=== PATIENT | female | born 1975 | race Caucasian/White ===

== ENCOUNTER 2017-03-29 10:36 | Emergency (ER) | payer SELFPAY ==
[2017-03-29 10:45] VITALS: BP 119/95; PULSE 98; RESP 18; TEMP 98.1; O2SAT 94
== END 2017-03-29 11:42 | disposition left against medical advice (07) ==
DX: Z53.21 Procedure and treatment not carried out due to patient leaving prior to being seen by health care provider (principal)

== ENCOUNTER 2017-04-02 23:42 | Emergency (ER) | payer OTHER ==
[2017-04-02 23:57] VITALS: O2SAT 96
--- NOTE | 2017-04-03 00:24 | CPEKG ---
Heart Rate: 76 RR Interval: 789 P-R Interval: 216 QRSD Interval: 84 QT Interval: 372 QTC Interval: 419 P [place]: 65 QRS [place]: -10 T Wave [place]: 15 EKG Severity - ABNORMAL ECG - EKG Impression: SINUS RHYTHM EKG Impression: FIRST DEGREE AV BLOCK Electronically Signed By: Lorrie Yañez 03-Apr-2017 07:39:36
--- NOTE | 2017-04-03 01:13 | EDPHY ---
H & P Stated Complaint: [facility] Time Seen by Provider: 04/02/17 23:54 HPI/ROS: HPI The patient presents with shortness of breath which has been present for the last 1 month since she has been living in [place]. It is intermittent, mild in nature and not associated with any chest pain. She does have a history of 1 pack per day smoking and wonders if this is contributing. She does not have any coughing. She recently relocated here from [place]. She said she was seen at [facility] shortly after arriving but she denies any suicidal or homicidal ideations current [place]. She denies hearing any voices.. She is not on any psychiatric medication. REVIEW OF SYSTEMS Constitutional: No fever, no chills. Eyes: No discharge. ENT: No sore throat. Cardiovascular: No chest pain, no palpitations. Respiratory: No cough, positive for shortness of breath. Gastrointestinal: No abdominal pain, no vomiting. Genitourinary: No hematuria. Musculoskeletal: No back pain. Skin: No rashes. Neurological: No headache. PMHx: Psychiatric disease Soc Hx: 1 pack per day smoker, homeless PHYSICAL General Appearance: Alert, no distress Eyes: Pupils equal and round no pallor or injection ENT, Mouth: Mucous membranes moist Respiratory: There are no retractions, lungs are clear to auscultation Cardiovascular: Regular rate and rhythm Gastrointestinal: Abdomen is soft and non-tender, no masses, bowel sounds normal Neurological: A&O, moves all extremities Skin: Warm and dry, no rashes Musculoskeletal: Neck is supple non tender Extremities: symmetrical, full range of motion Psychiatric: Patient is oriented X 3, there is no agitation Source: Patient, EMS Exam Limitations: No limitations - Personal History Current Tetanus/Diphtheria Vaccine: Unsure Current Tetanus Diphtheria and Acellular Pertussis (TDAP): Unsure - Medical/Surgical History Hx Asthma: No Hx Chronic Respiratory Disease: No Hx Diabetes: No Hx Cardiac Disease: No Hx Renal Disease: No Hx Cirrhosis: No Hx Alcoholism: No Hx HIV/AIDS: No Hx Splenectomy or Spleen Trauma: No Other PMH: Depression. - Social History Smoking Status: Heavy smoker Constitutional: Initial Vital Signs Temperature (C) 36.3 C 04/02/17 23:40 Heart Rate 81 04/02/17 23:40 Respiratory Rate 18 04/02/17 23:40 Blood Pressure 122/88 H 04/02/17 23:40 O2 Sat (%) 96 04/02/17 23:40 O2 Delivery Mode Room Air Allergies/Adverse Reactions: No Known Allergies Allergy (Unverified 03/29/17 10:45) Home Medications: Medication Instructions Recorded NK [No Known Home Meds] 04/02/17 Medical Decision Making - Diagnostics EKG Interpretation: EKG: Complete interpretation has been separately recorded in the [facility] archive. Summary impression: Sinus rhythm Imaging Results: Chest x-ray two view shows no infiltrate, cardiomegaly, no effusion, interpreted by me, radiology interpretation is pending. Imaging: I viewed and interpreted images myself Differential Diagnosis: 41-year-old female, homeless, recently relocated here, heavy smoker, history of psychiatric disease, presents with shortness of breath intermittent for the last 1 month. There are no associated symptoms. On exam, she is very well- appearing, breathing comfortably, in no respiratory distress with clear lung sounds. Differential diagnosis includes COPD with exacerbation, bronchitis, pneumonia, less likely PE given no tachycardia or hypoxia. Less likely CHF been no associated symptoms. In the emergency department, EKG and chest x-ray were obtained and were unremarkable. The patient will be discharged home and is in agreement with this plan. I will give her an albuterol inhaler to go home with. - Data Points Medications Given: Discontinued Medications Albuterol Sulfate (Proventil Inh Prepack) 1 mdi TAKEHOME EDNOW ONE Stop: 04/03/17 01:19 Last Admin: 04/03/17 01:23 Dose: 1 mdi Diphenhydramine HCl (Benadryl) 50 mg PO EDNOW ONE Stop: 04/03/17 01:27 Last Admin: 04/03/17 01:28 Dose: 50 mg Departure - Departure Disposition: Home, Routine, Self-Care Clinical Impression: Shortness of breath Condition: Good Instructions: Albuterol (By breathing), Dyspnea (ED) Additional Instructions: Try the albuterol inhaler to see if this helps her symptoms. You should return to the emergency department if your worse in any way. Otherwise, [facility] Referrals: [facility],. [Clinic] - As per Instructions Stand Alone Forms: Work Excuse
[2017-04-03] MEDS ORDERED: ALBUTEROL INH PREPACK MDI TAKEHOME ONE ×2 (01:18)
[2017-04-03] MEDS ORDERED: diphenhydrAMINE 25 MG CAP PO ONE (01:26)
[2017-04-03 01:39] VITALS: BP 123/78; PULSE 80; RESP 16; TEMP 97.5
== END 2017-04-03 01:50 | disposition home or self-care (01) ==
LOC: EDUNIT#
DX: R06.02 Shortness of breath (principal); F17.200 Nicotine dependence, unspecified, uncomplicated

== ENCOUNTER 2017-04-24 01:17 | Emergency (ER) | payer OTHER ==
--- NOTE | 2017-04-24 01:24 | EDPHY ---
H & P Source: Patient, EMS - Medical/Surgical History Hx Asthma: No Hx Chronic Respiratory Disease: No Hx Diabetes: No Hx Cardiac Disease: No Hx Renal Disease: No Hx Cirrhosis: No Hx Alcoholism: No Hx HIV/AIDS: No Hx Splenectomy or Spleen Trauma: No Other PMH: Depression. - Social History Smoking Status: Heavy smoker HPI/ROS: HPI CHIEF COMPLAINT: Anxiety, depression, on M1 hold, paranoid HISTORY OF PRESENT ILLNESS: This patient is a 42-year-old female, she presents emergency room by EMS after police were called to a local [employer] shop as she was seated there talking to herself. Unclear who called 911 however she was brought to [facility] and had evaluation was then subsequently sent to the emergency room for medical clearance. They did place her on M1 hold. Patient denies wanting to hurt herself or anybody else. Denies being suicidal. She does state that people are following her and she is paranoid. Past Medical History: Anxiety, depression Past Surgical History: No recent surgery Social History: Homeless, denies drugs alcohol tobacco. Family History: Noncontributory ROS REVIEW OF SYSTEMS: A comprehensive 10 point review of systems is otherwise negative aside from elements mentioned in the history of present illness. Exam Constitutional appears well nontoxic, triage nursing summary reviewed, vital signs reviewed, awake/alert. Eyes normal conjunctivae and sclera, EOMI, PERRLA. HENT normal inspection, atraumatic, moist mucus membranes, no epistaxis, neck supple/ no meningismus, no raccoon eyes. Respiratory clear to auscultation bilaterally, normal breath sounds, no respiratory distress, no wheezing. Cardiovascular rate normal, regular rhythm, no murmur, no edema, distal pulses normal. Gastrointestinal soft, non-tender, no rebound, no guarding, normal bowel sounds, no distension, no pulsatile mass. Genitourinary no CVA tenderness. Musculoskeletal no midline vertebral tenderness, full range of motion, no calf swelling, no tenderness of extremities, no meningismus, good pulses, neurovascularly intact. Skin pink, warm, & dry, no rash, skin atraumatic. Neurologic awake, alert and oriented x 3, AAOx3, moves all 4 extremities equally, motor intact, sensory intact, CN II-XII intact, normal cerebellar, normal vision, normal speech. Psychiatric flat affect. Heme/Lymph/Immune no lymphadenopathy. Differential Diagnosis: Includes but is not limited to in a particular order depression, mood disorder, bipolar disorder, paranoia, anxiety, drug abuse Medical Decision Making: Plan for this patient blood draw for medical clearance , check basic blood work, drug screen, and patient will then need mental health evaluation. Re-evaluation: (Derick Blake) Constitutional: Initial Vital Signs Temperature (C) 36.8 C 04/24/17 01:17 Heart Rate 98 04/24/17 01:17 Respiratory Rate 16 04/24/17 01:17 Blood Pressure 123/56 H 04/24/17 01:17 O2 Sat (%) 96 04/24/17 01:17 O2 Delivery Mode Room Air Allergies/Adverse Reactions: No Known Allergies Allergy (Unverified 03/29/17 10:45) Home Medications: Medication Instructions Recorded NK [No Known Home Meds] 04/02/17 Medical Decision Making Other Provider: Care the patient was assumed from Dr. Blake at 7:00 a.m., the patient is on a hold for psychosis. Will have mental health evaluation and disposition pending their recommendations. 839: patient was on hold for paranoia, had evaluation, does not seem paranoid now, does not appear to be danger to self or others, or gravely disabled. Recommendation of psychiatrist Dr. Bret Grissom is to vacate the mental health hold and discharge the patient. (Ciaran Marc) - Data Points Laboratory Results: Laboratory Results 04/24/17 01:22 04/24/17 01:22 04/24/17 04/24/17 04/24/17 03:35 01:22 01:22 WBC RBC Hgb Hct MCV MCH MCHC RDW Plt Count MPV Neut % (Auto) Lymph % (Auto) [place] % (Auto) Eos % (Auto) Baso % (Auto) Nucleat RBC Rel Count Absolute Neuts (auto) Absolute Lymphs (auto) Absolute Monos (auto) Absolute Eos (auto) Absolute Basos (auto) Absolute Nucleated RBC Immature Gran % Immature Gran # Sodium 141 mEq/L mEq/L (134-144) Potassium 4.1 mEq/L mEq/L (3.5-5.2) Chloride 106 mEq/L mEq/L (97-110) Carbon Dioxide 22 mEq/l mEq/l (22-31) Anion Gap 13 mEq/L mEq/L (8-16) BUN 11 mg/dL mg/dL (7-23) Creatinine 0.6 mg/dL mg/dL (0.6-1.0) Estimated GFR > 60 Glucose 125 mg/dL H mg/dL (70-100) Calcium 9.7 mg/dL mg/dL (8.5-10.4) Beta HCG, Qual NEGATIVE Urine Color YELLOW Urine Appearance HAZY Urine pH 7.0 (5.0-7.5) Ur Specific Kevin 1.019 (1.002-1.030) Urine Protein NEGATIVE (NEGATIVE) Urine Ketones NEGATIVE (NEGATIVE) Urine Blood NEGATIVE (NEGATIVE) Urine Nitrate NEGATIVE (NEGATIVE) Urine Bilirubin NEGATIVE (NEGATIVE) Urine Urobilinogen 2.0 EU H EU (0.2-1.0) Ur Leukocyte Esterase NEGATIVE (NEGATIVE) Urine Glucose NEGATIVE (NEGATIVE) Urine Opiates Screen NEGATIVE (NEGATIVE) Urine Barbiturates NEGATIVE (NEGATIVE) Ur Phencyclidine Scrn NEGATIVE (NEGATIVE) Ur Amphetamine Screen NEGATIVE (NEGATIVE) U Benzodiazepines Scrn NEGATIVE (NEGATIVE) Urine Cocaine Screen NEGATIVE (NEGATIVE) U Marijuana (THC) Screen NEGATIVE (NEGATIVE) Ethyl Alcohol < 10 mg/dL mg/dL (0-10) 04/24/17 01:22 WBC 11.47 10^3/uL H 10^3/uL (3.80-9.50) RBC 4.05 10^6/uL L 10^6/uL (4.18-5.33) Hgb 12.6 g/dL g/dL (12.6-16.3) Hct 36.4 % L % (38.0-47.0) MCV 89.9 fL fL (81.5-99.8) MCH 31.1 pg pg (27.9-34.1) MCHC 34.6 g/dL g/dL (32.4-36.7) RDW 13.7 % % (11.5-15.2) Plt Count 340 10^3/uL 10^3/uL (150-400) MPV 10.3 fL fL (8.7-11.7) Neut % (Auto) 60.8 % % (39.3-74.2) Lymph % (Auto) 25.6 % % (15.0-45.0) Dyer % (Auto) 10.4 % % (4.5-13.0) Eos % (Auto) 1.9 % % (0.6-7.6) Baso % (Auto) 0.8 % % (0.3-1.7) Nucleat RBC Rel Count 0.0 % % (0.0-0.2) Absolute Neuts (auto) 6.97 10^3/uL H 10^3/uL (1.70-6.50) Absolute Lymphs (auto) 2.94 10^3/uL 10^3/uL (1.00-3.00) Absolute Monos (auto) 1.19 10^3/uL H 10^3/uL (0.30-0.80) Absolute Eos (auto) 0.22 10^3/uL 10^3/uL (0.03-0.40) Absolute Basos (auto) 0.09 10^3/uL 10^3/uL (0.02-0.10) Absolute Nucleated RBC 0.00 10^3/uL 10^3/uL (0-0.01) Immature Gran % 0.5 % % (0.0-1.1) Immature Gran # 0.06 10^3/uL 10^3/uL (0.00-0.10) Sodium Potassium Chloride Carbon Dioxide Anion Gap BUN Creatinine Estimated GFR Glucose Calcium Beta HCG, Qual Urine Color Urine Appearance Urine pH Ur Specific Kevin Urine Protein Urine Ketones Urine Blood Urine Nitrate Urine Bilirubin Urine Urobilinogen Ur Leukocyte Esterase Urine Glucose Urine Opiates Screen Urine Barbiturates Ur Phencyclidine Scrn Ur Amphetamine Screen U Benzodiazepines Scrn Urine Cocaine Screen U Marijuana (THC) Screen Ethyl Alcohol Departure - Departure Disposition: Home, Routine, Self-Care Clinical Impression: Anxiety Condition: Good Instructions: Anxiety (ED) Referrals: [facility],. [Clinic] - As per Instructions [facility],. [Clinic] - As per Instructions
[2017-04-24 01:44] LABS: % IMMATURE GRANULYOCYTES 0.5 % (0.0-1.1); ABSOLUTE IMMATURE GRANULOCYTES 0.06 10^3/uL (0.00-0.10); ADD DIFF? NO; ADD MORPH? NO; ADD SCAN? NO; ATYPICAL LYMPHOCYTE FLAG 10 (0-99); FRAGMENT RBC FLAG 0 (0-99); HEMATOCRIT 36.4 % (38.0-47.0); HEMOGLOBIN 12.6 g/dL (12.6-16.3); LEFT SHIFT FLG 0 (0-99); LIPEMIA HEMOLYSIS FLAG 90 (0-99); MEAN CELL HEMOGLOBIN 31.1 pg (27.9-34.1); MEAN CELL HEMOGLOBIN CONCENTR. 34.6 g/dL (32.4-36.7); MEAN CELL VOLUME 89.9 fL (81.5-99.8); MEAN PLATELET VOLUME 10.3 fL (8.7-11.7); PLATELET CLUMPS FLAG 0 (0-99); PLATELET COUNT 340 10^3/uL (150-400); RED BLOOD CELL COUNT 4.05 10^6/uL (4.18-5.33); RED CELL DISTRIBUTION WIDTH 13.7 % (11.5-15.2)
[2017-04-24 01:56] LABS: ANION GAP 13 mEq/L (8-16); CALCIUM 9.7 mg/dL (8.5-10.4); CARBON DIOXIDE 22 mEq/l (22-31); CHLORIDE 106 mEq/L (97-110); CREATININE 0.6 mg/dL (0.6-1.0); ETHANOL SERUM < 10 mg/dL (0-10); GLOMERULAR FILTRATION RATE > 60; GLUCOSE 125 mg/dL (70-100); POTASSIUM 4.1 mEq/L (3.5-5.2); SODIUM 141 mEq/L (134-144)
[2017-04-24 04:13] LABS: COLOR YELLOW; LEUKOCYTE ESTERASE,URINE NEGATIVE (NEGATIVE); NITRITE,URINE NEGATIVE (NEGATIVE)
[2017-04-24 09:02] VITALS: BP 119/55; PULSE 107; RESP 20; TEMP 98.6; O2SAT 96
== END 2017-04-24 09:12 | disposition home or self-care (01) ==
LOC: EDUNIT#
DX: F41.9 Anxiety disorder, unspecified (principal); F17.200 Nicotine dependence, unspecified, uncomplicated
CPT/HCPCS: 80305; G0480

== ENCOUNTER 2017-04-24 16:33 | Emergency (ER) | payer OTHER ==
--- NOTE | 2017-04-24 19:20 | EDPHY ---
H & P Stated Complaint: cough Time Seen by Provider: 04/24/17 19:19 HPI/ROS: HPI: This is a 42-year-old female who presents with Chief Complaint: Cough and fever chills Location: Chest Quality: Cough Duration: 1 day Signs and Symptoms:+ fever, + chills, + pleuritic chest pain, no palpitation, no shortness of breath, no wheezing, no abdominal pain, no nausea, + posttussive emesis Timing: Sudden, intermittent episodes Severity: Moderate to severe Context: Patient has a history of depression, schizophrenia, bipolar, heavy tobacco smoker presents with complaints of sudden onset of harsh cough- nonproductive in nature, accompanied by fever, chills, fatigue, posttussive emesis and pleuritic chest pain times 1-2 days. Patient is homeless. LMP 2-3 weeks ago. Patient is difficult to obtain history. Modifying Factors: None Comment: ROS: see HPI Constitutional: No fever, no chills, no weight loss Eyes: No blurred vision Respiratory: No shortness of breath, + cough Cardiovascular: No chest pain Gastrointestinal: No nausea, no vomiting, no diarrhea Genitourinary: No dysuria Extremities: No myalgias Neurologic: No weakness, no numbness Skin: No rashes Hematologic: No bruising, no bleeding MEDICAL/SURGICAL/SOCIAL HISTORY: Medical history: Depression, schizophrenic, bipolar Surgical history: Denies Social history: Homeless. CONSTITUTIONAL: Mumbling adult white female, smells like urine, awake and alert , no obvious distress HEENT: Atraumatic and normocephalic, PERRL, EOMI. Tympanic membranes clear. Oropharynx clear, no exudate and moist pink mucosa. Airway patent. No lymphadenopathy. No meningismus. Cardiovascular: Normal S1/S2, tachycardia, regular rhythm, without murmur rub or gallop. PULMONARY/CHEST: Symmetrical and nontender. Clear to auscultation bilaterally. Good air movement. No accessory muscle usage. Harsh dry cough noted. ABDOMEN: Soft, nondistended, nontender, no rebound, no guarding, no peritoneal signs, no masses or organomegaly. No CVAT. EXTREMITIES: 2/2 pulses, strength 5/5, no deformities, no clubbing, no cyanosis or edema. NEUROLOGICAL: no focal neuro deficits. GCS 15. SKIN: Warm and dry, no erythema. no rash. Good capillary refill. Source: Patient Exam Limitations: No limitations - Personal History LMP (Females 10-55): 15-21 Days Ago Current Tetanus/Diphtheria Vaccine: Unsure Current Tetanus Diphtheria and Acellular Pertussis (TDAP): Unsure - Medical/Surgical History Hx Asthma: No Hx Chronic Respiratory Disease: No Hx Diabetes: No Hx Cardiac Disease: No Hx Renal Disease: No Hx Cirrhosis: No Hx Alcoholism: No Hx HIV/AIDS: No Hx Splenectomy or Spleen Trauma: No Other PMH: Depression.schizophrenic, bipolar - Social History Smoking Status: Heavy smoker Constitutional: Initial Vital Signs Temperature (C) 37.1 C 04/24/17 18:23 Heart Rate 103 H 04/24/17 18:23 Respiratory Rate 20 04/24/17 18:23 Blood Pressure 123/73 H 04/24/17 18:23 O2 Sat (%) 90 L 04/24/17 18:23 O2 Delivery Mode Room Air Allergies/Adverse Reactions: guaifenesin [From Robitussin] Allergy (Verified 04/24/17 18:22) Home Medications: Medication Instructions Recorded Albuterol [Proventil] 1 - 2 puffs IH Q4 PRN #1 aerosol 04/24/17 Clonazepam 04/24/17 [place] Aspartate 04/24/17 Risperdal 04/24/17 levOFLOXACIN [levAQUIN (*)] 750 mg PO DAILY #6 tab 04/24/17 predniSONE [predniSONE TAPER] 10 mg PO DAILY 6 Days ea 04/24/17 Medical Decision Making - Diagnostics Imaging Results: Imaging Impressions Chest X-Ray 04/24/17 19:35 Impression: Lower lobe airspace opacities bilaterally which may represent atelectasis, less likely pneumonia. ED Course/Re-evaluation: Chest x-ray, influenza test, oral medications ordered Influenza negative Vital signs reviewed upon arrival no hypoxia/respiratory distress/fever Patient given Tessalon Perles, p.o. prednisone 60 mg, and albuterol neb Patient refused to be discharged to a alf this morning. Gave patient a bus pass and alf address and number list for this evening. Chest x-ray my read show nose opacity, no effusion, no pneumothorax, no wide mediastinum Patient is homeless, tobacco user will treat aggressively with antibiotics, Levaquin, steroid taper, albuterol inhaler. Patient has high risk of bounce-back due to psychiatric/cognitive impairments and homelessness. This patient was seen under the supervision of my secondary supervising physician. I evaluated care for this patient independently. Discussed this patient with Dr. Curry who did not see the patient. Differential Diagnosis: Differential diagnosis includes but is not limited to influenza, upper respiratory infection, bronchitis, pneumonia, sepsis, pulmonary embolism. - Data Points Laboratory Results: 04/24/17 04/24/17 20:25 20:20 Urine Test NEGATIVE Nasal Influenza A PCR NEGATIVE FOR FLU A (NEGATIVE) Nasal Influenza B PCR NEGATIVE FOR FLU B (NEGATIVE) Medications Given: Discontinued Medications Albuterol (Proventil Neb) 3 ml IH EDNOW ONE Stop: 04/24/17 19:37 Last Admin: 04/24/17 19:47 Dose: 3 ml Benzonatate (Tessalon Pearles) 200 mg PO EDNOW ONE Stop: 04/24/17 19:36 Last Admin: 04/24/17 19:47 Dose: 200 mg Levofloxacin (Levaquin) 750 mg PO EDNOW ONE PRN Reason: Protocol Stop: 04/24/17 21:20 Last Admin: 04/24/17 21:36 Dose: 750 mg Prednisone (Prednisone) 60 mg PO EDNOW ONE Stop: 04/24/17 19:36 Last Admin: 04/24/17 19:48 Dose: 60 mg Departure - Departure Disposition: Home, Routine, Self-Care Clinical Impression: Tobacco user, Bronchitis Condition: Fair Instructions: How to Stop Smoking (ED), Acute Bronchitis (ED) Additional Instructions: Stop smoking. Take all medications as directed. Influenza test was negative. Referrals: [facility],. [Clinic] - As per Instructions Prescriptions: Albuterol [Proventil] 1 - 2 puffs IH Q4 PRN #1 aerosol PRN Reason: Short Of Breath/Dyspnea levOFLOXACIN [levAQUIN (*)] 750 mg PO DAILY #6 tab predniSONE [predniSONE TAPER] 10 mg PO DAILY 6 Days ea
[2017-04-24 19:33] VITALS: PULSE 89
[2017-04-24] MEDS ORDERED: BENZONATATE 100 MG CAP PO ONE (19:35)
[2017-04-24] MEDS ORDERED: predniSONE 20 MG TAB PO ONE (19:35)
[2017-04-24] MEDS ORDERED: ALBUTEROL 3 ML DEYVIAL IH ONE (19:36)
[2017-04-24 21:44] VITALS: BP 133/87; RESP 16; TEMP 98.6; O2SAT 93
== END 2017-04-24 21:42 | disposition home or self-care (01) ==
DX: J20.9 Acute bronchitis, unspecified (principal); F17.200 Nicotine dependence, unspecified, uncomplicated